=== PATIENT | female | born 1995 | race Caucasian/White ===

== ENCOUNTER 2017-11-13 08:58 | Emergency (ER) | payer SELFPAY ==
[~2017-11-13] VITALS: Ht 170.2 cm; Wt 146.0 kg
[~2017-11-13 08:58] MED LIST: 12 HOUR DECONG120 M1 PO; ADDERALL 25 MG PO; ADDERALL 30 MG; ADDERALL 30 MG PO; ADDERALL PO; ADDERALL XR 2525 MG PO; ADDERALL XR 3030 MG PO; ADDERALL10 MG PO; ADDERALL30 MG PO; ADVAIR 500/501 DISK IH; ALBUTEROL SULF8.5 GM IH; ALBUTEROL2.5 MG/3 M; BUPROPION XL150 MG PO; CARBAMAZEPINE200 M1 PO; CLARITIN,ALAVAR10 MG PO; CLARITIN10 MG PO; FLOVENT DISKUS1 DISK; FLUOXETINE HCL10 MG PO; HYDROCODON-ACE1 EAC7 PO; KEFLEX500 MG PO; LAMICTAL; LAMICTAL200 MG PO; LO LOESTRIN FE1 EACH PO; LORATADINE10 M2 PO; MONTELUKAST SOD10 MG PO; NORCO 5/3251 TABLET PO; PHENERGAN-CODE120 ML PO; PREDNISONE50 MG PO; PROMETHAZINE-D120 ML PO; SYMBICORT60 INHALAT IH; VENTOLIN HFA18 GM; VENTOLIN HFA18 GM IH; WELLABUTRIN; WELLBUTRIN100 MG PO; XANAX1 MG PO; ZITHROMAX Z-PA250 MG PO; ZOFRAN4 MG PO
[2017-11-13] MEDS ORDERED: POLYTRIM EYE DR10 ML BOTH EYES (10:01)
[2017-11-13 10:11] VITALS: BP 147/94
== END 2017-11-13 10:11 | disposition home or self-care (01) ==
LOC: EME 08:58
DX: H10.9 Unspecified conjunctivitis (principal); F17.200 Nicotine dependence, unspecified, uncomplicated
CPT/HCPCS: 99281; 99283